=== PATIENT | female | born 1940 | race Caucasian/White ===

== ENCOUNTER → 2017-11-30 | Outpatient (CLI) | payer MEDICARE, OTHER ==
[~2017-11-30] MED LIST: AMIO200 PO; CALC1TAB87 PO; CYAN2500 PO; EQL400TA PO; ESTR.625 PO; FOLI400T PO; LACTCAP7 PO; LACTCAP8 PO; LEVO.075 PO; MULTTAB67 PO; RIVA15 PO; SYNT75TA PO; TAB-TAB PO; VITA10002 PO; XARE15TA PO; [UNRECOGNIZED DRUG - CODE] PO
[2017-11-30 10:49] LABS: HEMOGLOBIN 13.5 GM/DL (11.6-15.3); MEAN CELL VOLUME 95.1 FL (80.0-100.0); MEAN CORPUSCULAR HEMOGLOBIN 32.1 PG (27.0-34.0); MEAN CORPUSCULAR HGB CONC 33.8 % (32.0-36.0); MEAN PLATELET VOLUME 7.4 FL (7.0-11.0); PLATELET COUNT 295 TH/MM3 (150-450); RED CELL DISTRIBUTION WIDTH 13.3 % (11.6-17.2); WHITE BLOOD COUNT 4.5 TH/MM3 (4.0-11.0)
[2017-11-30 11:05] LABS: INTERNATIONAL NORMALIZED RATIO 1.3 RATIO; PROTHROMBIN TIME - PATIENT 13.1 SEC (9.8-11.6)
[2017-11-30 11:16] LABS: BICARBONATE 27.3 MEQ/L (21.0-32.0); CALCIUM 9.6 MG/DL (8.5-10.1); CREATININE 0.84 MG/DL (0.50-1.00)
--- NOTE | 2017-12-01 16:48 | EKG ---
Date Performed: 11/30/2017 Time Performed: 10:44:25 PTAGE: 77 years EKG: First degree AV block Poor initial anterior forces, which may be normal variant Since previ ous tracing, no significant change noted ABNORMAL ECG PREVIOUS TRACING : 07/04/2016 19.04 DOCTOR: Dmitry Kelley Interpretating Date/Time 12/01/2017 16:47:22
== END ==
LOC: CPRE 10:02
PROVIDERS: ATTEND Internal Medicine
DX: Z01.810 Encounter for preprocedural cardiovascular examination (principal); Z01.812 Encounter for preprocedural laboratory examination; C34.90 Malignant neoplasm of unspecified part of unspecified bronchus or lung; R59.0 Localized enlarged lymph nodes; R22.0 Localized swelling, mass and lump, head; Z79.01 Long term (current) use of anticoagulants; R94.31 Abnormal electrocardiogram [ECG] [EKG]
CPT/HCPCS: 36415; 80048; 85027; 85610; 85730; 93005

== ENCOUNTER 2017-12-04 10:56 | Day surgery (SDC) | payer MEDICARE, OTHER ==
--- NOTE | 2017-11-28 08:05 | MB ---
cc: Chela Francois MD, Roxy MD DATE OF CONSULT: 12/04/2017 This is a pulmonary consultation for bronchoscopy being scheduled. HISTORY: Ms. Weaver is a 76-year-old white female whom I first saw in 2015 with a right lung mass. 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 We followed her carefully since then, and to date, she had had no evidence of recurrence. I saw her back today on 11/26/2017 and for several weeks, she has had a minor cough but something new. No chest pain, no shortness of breath, no hemoptysis. She thought she might have a little cold. A routine CT had been done though last week, which reveals a new mass lesion in the right upper lobe, measures 3 cm x 3 cm with some central cavitation. It is suspicious for recurrent or new malignancy. She has had no other recent symptoms, no illnesses or health issues since I last saw her in April. PAST MEDICAL HISTORY: Chronic atrial fibrillation for 2 years. She has been on Xarelto. Hypothyroidism, prior hysterectomy, and prior breast augmentation. ALLERGIES: NONE KNOWN. OTHER MEDICATIONS: Premarin, Synthroid, folic acid and a multiple vitamin. FAMILY HISTORY: Parents both in their 60s of heart disease, a brother with diabetes. Two children in good health. SOCIAL HISTORY: Originally from [facility]. She has lived in this area many years. She was an health promotion officer in doctor's offices. She lost her in 2011. Occasional glass of wine. She has never smoked. REVIEW OF SYSTEMS: No recent weight loss or loss of appetite. No headaches. No musculoskeletal complaints or pain. PHYSICAL EXAMINATION: 98 degrees, 110/60, pulse 90, RR 18, 96% on room air. Sclerae anicteric. Pharynx is clear. Neck veins are flat. No adenopathy in the neck or supraclavicular region. Her chest is entirely clear. No wheezes, rales or congestion. Regular rhythm. No harsh murmur. Abdomen is soft, nontender. No peripheral edema or cyanosis. CT scan is reviewed with Ms. Weaver, and she has a 3 cm right upper lobe nodular density, possibly some perihilar fullness, adenopathy or extension of the mass. I have reviewed this with Gisselle today and suggested that we proceed with a diagnostic bronchoscopy. An alternative would be a needle aspiration, and I will discuss that with radiology, but I think the first step in this circumstance would be diagnostic bronchoscopy and possible ultrasound-guided biopsy of that right hilar mass. We reviewed this together, discussing the procedure, potential complications and yield. 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 Further diagnostic and/or therapeutic intervention will depend on the results of this study. R. MD ROSA ELENA Perea/LYNDA , 04:43 PM , 05:49 PM
[~2017-12-04] VITALS: Ht 165.1 cm; Wt 56.4 kg
[2017-12-04 11:35] VITALS: BP 139/78; PULSE 90; RESP 18; TEMP 98; O2SAT 98
[2017-12-04] MEDS ORDERED: SODIUM CHLOR 0.45% 1000 ML INJ 1,000 ML IV SCH (12:15)
[2017-12-04] MEDS ORDERED: LACTATED RINGER'S 1000 ML IV PRN (12:15)
[2017-12-04] MEDS ORDERED: INSULIN HUMAN REGULAR 1,000 UNITS/10 ML VIAL SQ PRN (12:15)
[2017-12-04] MEDS ORDERED: SODIUM CHLORID 0.9% 500 ML IV PRN (12:15)
[2017-12-04] MEDS ORDERED: METOPROLOL TARTRATE 25 MG TAB PO PRN (12:15)
[2017-12-04] MEDS ORDERED: RESP: ALBUTEROL CONC 2.5 MG/0.5 ML NEB ONE (13:12)
[2017-12-04] MEDS ORDERED: RESP: LIDOCAINE HCL 4% PF 5 ML NEB ONE (13:12)
--- NOTE | 2017-12-04 13:48 | RADRPT ---
EXAM DATE/TIME: 12/04/2017 12:34 [facility] COMPARISON: CT BRAIN W/O CONTRAST, July 04, 2016, 18:44. INDICATIONS : Navicational bronch RADIATION DOSE: 8.98 CTDIvol (mGy) MEDICAL HISTORY : Hypothyroidism. Cardiovascular disease Carcinoma, lung. SURGICAL HISTORY : Breast augmentation ENCOUNTER: Initial ACUITY: 1 day PAIN SCALE: 0/10 LOCATION: chest TECHNIQUE: Volumetric scanning of the chest was performed using inspiration and expiration protocols. The study is performed using fiduciary markers for virtual bronchoscopy. Using automated exposure control and adjustment of the mA and/or kV according to patient size, radiation dose was kept as low as reasonabl y achievable to obtain optimal diagnostic quality images. DICOM format image data is available elec tronically for review and comparison. Follow-up recommendations for detected pulmonary nodules are based at a minimum on nodule size and pa tient risk factors according to Fleischner Society Guidelines. FINDINGS: Examination of the pulmonary parenchyma demonstrates a 3.3 x 3.4 cm thick walled, partially cavitary mass in the right upper lobe. There is a portion of soft tissue extending nearly down to the right hi lum. There are surgical clips in the right hilum. This lesion would be suspicious for malignancy. Bio psy would be warranted. The remainder of the pulmonary parenchyma visualized demonstrates mild tubular bronchiectasis on the right. No other lesions are identified. There is no pleural effusion. The heart is normal in size. No significant mediastinal adenopathy is seen. Again noted are surgical clips in the right aimee. No axillary adenopathy is present. The examination demonstrates bilateral breast implants with calcified implant capsules. There does ap pear to be extravasation of filling material from the implant on the left suggesting possible implant rupture. The limited portions of upper abdomen visualized are unremarkable. The visualized osseous structures demonstrate a hemangioma in T7 and scattered degenerative changes b ut are otherwise intact. CONCLUSION: 1. There is a thickwalled cavitary mass in the right lung apex measuring 3.3 x 3.4 cm. Primary consid eration would be malignancy however this could also be infectious in etiology. 2. Postsurgical changes in the right aimee. 3. Mild tubular bronchiectasis in the right upper lobe. This is seen to a lesser extent in the lower lobe. 4. Possible implant capsular rupture on the left. 5. Probable hemangioma in the T7 vertebral body. Hilario Nieto MD on December 04, 2017 at 13:41 Board Certified Radiologist. This report was verified electronically.
[2017-12-04] MEDS ORDERED: RESP: ALBUTEROL 2.5 MG/IPRATROPIUM 0.5 MG NEB (PRN) NEB (15:30)
[2017-12-04] MEDS ORDERED: DO NOT ADM ANY ANTICOAGULANT DRUGS PRN (15:30)
[2017-12-04] MEDS ORDERED: *MEPERIDINE 25 MG INJ VIAL PERIprocedural Use ONLY ONE (15:44)
--- NOTE | 2017-12-04 15:54 | MP ---
cc: Chela Francois MD DATE OF OPERATION: 12/04/2017 Bronchoscopy. INDICATION: New right upper lung region nodule suspicious for malignancy. After informed consent was obtained, the patient underwent diagnostic bronchoscopy utilizing navigational technology. Examination of the trachea down to the level of the main stem bronchi was normal. Examination of the left main stem bronchus, upper and lower lobes was entirely unremarkable with no endobronchial pathology. Examination of the right main stem bronchus was somewhat altered in light of the previous right upper lobectomy with distorted anatomy. Precise segments were not clear, although it appeared that she still had a right middle lobe and then right lower lobe segments. In light of the architectural distortion, navigational technology was utilized to identify the segment in the upper lobe region where the lesion was noted. Preprocedure planning was done by computer. Unfortunately, we were not able to manipulate our tip-tracked instruments into the area of the lesion. After multiple attempts, that was abandoned. Utilizing fluoroscopy, we were then able to identify the upper portion of the lung, where the lesion was present, and we washed, brushed and took 2 transbronchial biopsies from that region using fluoroscopy. In summary, other than distortion of the endobronchial pathology from the previous lobectomy, there was no other abnormality. No lesions were noted endoscopically. Multiple specimens were obtained from that right upper lung region for cytology, culture and routine pathology. She tolerated the procedure well without apparent complication. There was minimal bleeding. No active bleeding at the end of the procedure. She was transferred to recovery and being prepared for extubation. A chest x-ray is pending. MD ROSA ELENA Pacheco/LYNDA , 03:40 PM , 03:53 PM
--- NOTE | 2017-12-04 16:03 | RADRPT ---
EXAM DATE/TIME: 12/04/2017 15:48 [facility] COMPARISON: CT THORAX W/O CONTRAST INSP/EXPIR, NAVIGATION, December 04, 2017, 12:34. CHEST SINGLE AP, July 04, 016, 19:07. INDICATIONS : Post bromchoscopy. MEDICAL HISTORY : Hypothyroidism. Cardiovascular disease Carcinoma, lung SURGICAL HISTORY : Breast augmentation ENCOUNTER: Subsequent ACUITY: 1 day PAIN SCORE: 0/10 LOCATION: Bilateral chest FINDINGS: Patient is status post bronchoscopy. No evidence of pneumothorax. There is an area of parenchymal con solidation in the right upper lung. Postsurgical changes in the right hilar with volume loss in the r ight lung. Left lung is grossly clear. CONCLUSION: Status post bronchoscopy. No pneumothorax. Christophe Vanegas MD on December 04, 2017 at 15:59 Board Certified Radiologist. This report was verified electronically.
[2017-12-04 16:20] VITALS: BP 110/62; PULSE 71; RESP 16; TEMP 97.9; O2SAT 92
[2017-12-04 16:50] VITALS: BP 112/55; PULSE 71; RESP 16; O2SAT 92
[2017-12-04 17:20] VITALS: BP 110/62; PULSE 71; RESP 16; O2SAT 92
== END 2017-12-04 17:20 | disposition home or self-care (01) ==
LOC: HROP 10:56 → HRIP 11:00 → HROP 17:20
PROVIDERS: ATTEND Internal Medicine
DX: C34.90 Malignant neoplasm of unspecified part of unspecified bronchus or lung (principal); J47.9 Bronchiectasis, uncomplicated; I10 Essential (primary) hypertension; E03.9 Hypothyroidism, unspecified; I25.10 Atherosclerotic heart disease of native coronary artery without angina pectoris
CPT/HCPCS: 00520; 31625; 31627; 71045; 71250; 76000; 87015; 87070; 87102; 87116; 87205; 87206; 88112; 88305; 88312; 94664; J2175; J3010; J7611